=== PATIENT | female | born 1970 | race African-American/Black ===

== ENCOUNTER 2018-04-21 13:10 | Emergency (ER) | payer MEDICAID ==
--- NOTE | 2018-04-21 13:34 | EDM.PDOC ---
ED HPI GENERAL MEDICAL PROBLEM - General Stated Complaint: HPB Time Seen by Provider: 04/21/18 13:34 Source of Information: Reports: Patient History Limitations: Reports: No Limitations - History of Present Illness INITIAL COMMENTS - FREE TEXT/NARRATIVE: HISTORY AND PHYSICAL: History of present illness: Patient is a 48-year-old female who presents to the emergency room today with complaints of a migraine headache, nausea and generalized abdominal "upset". She states that when her blood pressure becomes elevated, she usually gets a migraine headache with this. She currently does take antihypertensive medications, but unsure of which she takes. Review of systems: As per history of present illness and below otherwise all systems reviewed and negative. Past medical history: As per history of present illness and as reviewed below otherwise noncontributory. Surgical history: As per history of present illness and as reviewed below otherwise noncontributory. Social history: No reported history of drug or alcohol abuse. Family history: As per history of present illness and as reviewed below otherwise noncontributory. Physical exam: General: Well-developed and well-nourished 48-year-old female. Alert and oriented. Nontoxic appearing and in no acute distress. HEENT: Atraumatic, normocephalic, pupils equal and reactive bilaterally, negative for conjunctival pallor or scleral icterus, mucous membranes moist, throat clear, neck supple, nontender, trachea midline. No drooling or trismus noted. No meningeal signs Lungs: Clear to auscultation, breath sounds equal bilaterally, chest nontender. Heart: S1S2, regular rate and rhythm without overt murmur Abdomen: Soft, nondistended, nontender. Negative for masses or hepatosplenomegaly. Negative for costovertebral tenderness. Pelvis: Stable nontender. Genitourinary: Deferred. Rectal: Deferred. Skin: Intact, warm, dry. No lesions or rashes noted. Extremities: Atraumatic, negative for cords or calf pain. Neurovascular unremarkable. Neuro: Awake, alert, oriented. Cranial nerves II through XII unremarkable. Cerebellum unremarkable. Motor and sensory unremarkable throughout. Exam nonfocal. Notes: CBC, CMP, and UA are unremarkable. Patient declined the Zofran at this time. Patient reports that her primary care provider is out of Jamie, whom prescribes her antihypertensives. Patient states her headache has improved somewhat but still has 7 out of 10 pain. She is requesting to have something to take when she goes home as she is driving herself. Give her one tablet of tramadol for home use. Medication education was given. She voices understanding. She will call her primary care provider to discuss her blood pressure medications and possibly have these adjusted. She denies any further questions at this time. Diagnostics: CBC, CMP, UA Therapeutics: Normal Saline, Zofran, Toradol, Tramadol Impression: Migraine Headache Plan: 1. Please follow-up with your primary care provider to possibly have your blood pressure medication adjusted (if it continues to be elevated). 2. Follow up in the ED as needed as discussed. Definitive disposition and diagnosis as appropriate pending reevaluation and review of above. Onset: Today Location: Reports: Head Headache Pain Score (Numeric/FACES): 10 - Related Data Allergies Allergy/AdvReac Type Severity Reaction Status Date / Time No Known Drug Allergies Allergy Other Verified 04/21/18 13:35 Home Meds: Home Meds Metoprolol Succinate [Toprol XL] 04/21/18 [History] amLODIPine [Norvasc] 04/21/18 [History] Past Medical History Cardiovascular History: Reports: Hypertension Social & Family History - Caffeine Use Caffeine Use: Reports: Soda, Tea ED ROS GENERAL - Review of Systems Review Of Systems: ROS reveals no pertinent complaints other than HPI. ED EXAM, GENERAL - Physical Exam Exam: See Below (See dictation) Course - Vital Signs Last Recorded V/S: Last Vital Signs Temp 97.1 F 04/21/18 15:29 Pulse 68 04/21/18 15:29 Resp 18 04/21/18 15:29 BP 147/56 H 04/21/18 15:29 Pulse Ox 96 04/21/18 15:29 - Orders/Labs/Meds Orders: Active Orders 24 hr Category Date Time Status UA W/MICROSCOPIC [URIN] Stat Lab 04/21/18 13:55 Ordered Labs: Laboratory Tests 04/21/18 04/21/18 04/21/18 Range/Units 13:55 14:13 14:13 WBC 7.14 (4.0-11.0) K/uL RBC 4.60 (4.30-5.90) M/uL Hgb 12.5 (12.0-16.0) g/dL Hct 37.0 (36.0-46.0) % MCV 80.4 (80.0-98.0) fL MCH 27.2 (27.0-32.0) pg MCHC 33.8 (31.0-37.0) g/dL RDW Std Deviation 40.7 (28.0-62.0) fl RDW Coeff of John 14 (11.0-15.0) % Plt Count 315 (150-400) K/uL MPV 9.20 (7.40-12.00) fL Neut % (Auto) 61.2 (48.0-80.0) % Lymph % (Auto) 32.6 (16.0-40.0) % [place] % (Auto) 4.3 (0.0-15.0) % Eos % (Auto) 1.8 (0.0-7.0) % Baso % (Auto) 0.1 (0.0-1.5) % Neut # (Auto) 4.4 (1.4-5.7) K/uL Lymph # (Auto) 2.3 (0.6-2.4) K/uL [place] # (Auto) 0.3 (0.0-0.8) K/uL Eos # (Auto) 0.1 (0.0-0.7) K/uL Baso # (Auto) 0.0 (0.0-0.1) K/uL Nucleated RBC % 0.0 /100WBC Nucleated RBCs # 0 K/uL Sodium 136 (136-145) mmol/L Potassium 4.0 (3.5-5.1) mmol/L Chloride 100 (98-107) mmol/L Carbon Dioxide 29.3 (21.0-32.0) mmol/L BUN 11 (7.0-18.0) mg/dL Creatinine 1.0 (0.6-1.0) mg/dL Est Cr Clr Drug Dosing 61.91 mL/min Estimated GFR (MDRD) > 60.0 ml/min Glucose 101 (74-106) mg/dL Calcium 9.2 (8.5-10.1) mg/dL Total Bilirubin 0.2 (0.2-1.0) mg/dL AST 18 (15-37) IU/L ALT 20 (14-63) IU/L Alkaline Phosphatase 73 (46-116) U/L Total Protein 8.0 (6.4-8.2) g/dL Albumin 3.4 (3.4-5.0) g/dL Globulin 4.6 H (2.0-3.5) g/dL Albumin/Globulin Ratio 0.7 L (1.3-2.8) Urine Color YELLOW Urine Appearance CLEAR Urine pH 7.0 (5.0-8.0) Ur Specific [place] 1.015 (1.001-1.035) Urine Protein NEGATIVE (NEGATIVE) mg/dL Urine Glucose (UA) NEGATIVE (NEGATIVE) mg/dL Urine Ketones NEGATIVE (NEGATIVE) mg/dL Urine Occult Blood NEGATIVE (NEGATIVE) Urine Nitrite NEGATIVE (NEGATIVE) Urine Bilirubin NEGATIVE (NEGATIVE) Urine Urobilinogen 0.2 (<2.0) EU/dL Ur Leukocyte Esterase NEGATIVE (NEGATIVE) Urine RBC 0-1 (0-2/HPF) Urine WBC 0-1 (0-5/HPF) Ur Epithelial Cells RARE (NONE-FEW) Urine Bacteria RARE (NEGATIVE) Meds: Medications Discontinued Medications Generic Name Dose Route Start Last Admin Trade Name Freq PRN Reason Stop Dose Admin Sodium Chloride 1,000 mls @ 999 mls/hr 04/21/18 13:35 04/21/18 14:45 Normal Saline IV 04/21/18 14:35 999 mls/hr STAT ONE Administration Ketorolac Tromethamine 30 mg 04/21/18 13:38 04/21/18 14:44 Toradol IVPUSH 04/21/18 13:39 30 mg ONETIME ONE Administration Ondansetron HCl 4 mg 04/21/18 13:38 04/21/18 14:44 Zofran IVPUSH 04/21/18 13:39 Not Given ONETIME ONE Departure - Departure Time of Disposition: 15:39 Disposition: Home, Self-Care 01 Clinical Impression: Migraine Qualifiers: Migraine type: without aura Status migrainosus presence: without status migrainosus Intractability: not intractable Qualified Code(s): G43.009 - Migraine without aura, not intractable, without status migrainosus - Discharge Information Instructions: Migraine Headache, [id number] Referrals: PCP,None [Primary Care Provider] - Additional Instructions: The following information is given to patients seen in the emergency department who are being discharged to home. This information is to outline your options for follow-up care. We provide all patients seen in our emergency department with a follow-up referral. The need for follow-up, as well as the timing and circumstances, are variable depending upon the specifics of your emergency department visit. If you don't have a primary care physician on staff, we will provide you with a referral. We always advise you to contact your personal physician following an emergency department visit to inform them of the circumstance of the visit and for follow-up with them and/or the need for any referrals to a consulting specialist. The emergency department will also refer you to a specialist when appropriate. This referral assures that you have the opportunity for follow-up care with a specialist. All of these measure are taken in an effort to provide you with optimal care, which includes your follow-up. Under all circumstances we always encourage you to contact your private physician who remains a resource for coordinating your care. When calling for follow-up care, please make the office aware that this follow-up is from your recent emergency room visit. If for any reason you are refused follow-up, please contact the [facility] Emergency Department at and asked to speak to the emergency department charge nurse. [facility] [address] [place] [address] 1. Please follow-up with your primary care provider to possibly have your blood pressure medication adjusted (if it continues to be elevated). 2. Follow up in the ED as needed as discussed. - My Orders Last 24 Hours: My Active Orders 04/21/18 13:55 UA W/MICROSCOPIC [URIN] Stat - Assessment/Plan Last 24 Hours: My Active Orders 04/21/18 13:55 UA W/MICROSCOPIC [URIN] Stat
[2018-04-21] MEDS ORDERED: Sodium Chloride 0.9% 1,000 ML IV ONE (13:35)
[2018-04-21] MEDS ORDERED: Ketorolac 30 MG/ML SDV IVPUSH ONE (13:38)
[2018-04-21] MEDS ORDERED: Ondansetron 4 MG/2 ML SDV IVPUSH ONE (13:38)
[2018-04-21 14:42] LABS: CHLORIDE,CL 100 mmol/L (98-107); SODIUM,NA 136 mmol/L (136-145)
[2018-04-21] MEDS ORDERED: traMADol 50 MG Tab PO ONE (15:39)
[2018-04-21 16:14] VITALS: BP 156/69
== END 2018-04-21 16:15 | disposition home or self-care (01) ==
LOC: MW.ED 13:10
DX: G43.009 Migraine without aura, not intractable, without status migrainosus (principal); I10 Essential (primary) hypertension
CPT/HCPCS: 36415; 80053; 81001; 85025; 96361; 96374; 99283; A9270; J1885; J7040

== ENCOUNTER 2021-12-11 10:30 | Emergency (ER) | payer BC ==
[2021-12-11] MEDS ORDERED: Sodium Chloride 0.9% 2.5 ML Syringe FLUSH PRN (11:10)
[2021-12-11] MEDS ORDERED: Sodium Chloride 0.9% 1,000 ML IV ONE (11:10)
[2021-12-11] MEDS ORDERED: Sodium Chloride 0.9% 10 ML Syringe FLUSH PRN (11:10)
[2021-12-11] MEDS ORDERED: traMADol 50 MG Tab PO ONE (11:12)
[2021-12-11 11:47] LABS: CARBON DIOXIDE,CO2 24.4 mmol/L (21.0-32.0); POTASSIUM,K 3.5 mmol/L (3.5-5.1)
[2021-12-11 15:24] VITALS: BP 119/62; PULSE 68
[2021-12-12 12:08] LABS: C.TRACHOMATIS BY TMA Negative (Negative); N.GONORRHOEAE BY TMA Negative (Negative)
== END 2021-12-11 15:26 | disposition home or self-care (01) ==
LOC: MW.ED 10:30
DX: R10.2 Pelvic and perineal pain (principal); I10 Essential (primary) hypertension; Z79.899 Other long term (current) drug therapy
CPT/HCPCS: 36415; 74176; 76857; 80053; 81001; 81025; 85025; 87480; 87491; 87510; 87591; 87660; 99284; A9270; J7030

== ENCOUNTER 2023-04-15 11:39 | Emergency (ER) | payer SELFPAY ==
[2023-04-15] MEDS ORDERED: hydrALAZINE 20 MG/ML SDV IVPUSH ONE (12:23)
[2023-04-15 12:56] LABS: BASOPHILS PERCENT AUTO 0.1 % (0.0-1.5); EOSINOPHILS ABSOLUTE AUTO 0.1 K/uL (0.0-0.7); EOSINOPHILS PERCENT AUTO 1.4 % (0.0-7.0); HEMATOCRIT 34.6 % (36.0-46.0); HEMOGLOBIN 11.5 g/dL (12.0-16.0); LYMPHOCYTES ABSOLUTE AUTO 2.9 K/uL (0.6-2.4); LYMPHOCYTES PERCENT AUTO 37.6 % (16.0-40.0); MEAN CORPUSCULAR HEMOGLOBIN 26.6 pg (27.0-32.0); MEAN CORPUSCULAR HGB CONC 33.2 g/dL (31.0-37.0); MEAN CORPUSCULAR VOLUME 79.9 fL (80.0-98.0); MONOCYTES ABSOLUTE AUTO 0.5 K/uL (0.0-0.8); MONOCYTES PERCENT AUTO 7.1 % (0.0-15.0); NEUTROPHILS ABSOLUTE AUTO 4.1 K/uL (1.4-5.7); NEUTROPHILS PERCENT AUTO 53.8 % (48.0-80.0); PLATELET COUNT,PLT 285 K/uL (150-400); RED BLOOD CELL COUNT 4.33 M/uL (4.30-5.90); WHITE BLOOD CELL COUNT,WBC 7.64 K/uL (4.0-11.0)
[2023-04-15 13:16] LABS: CALCIUM 8.5 mg/dL (8.5-10.1); CARBON DIOXIDE,CO2 26.6 mmol/L (21.0-32.0); CREATININE 0.8 mg/dL (0.6-1.0); EST CRCL DRUG DOSING (CG) 73.18 mL/min; POTASSIUM,K 3.9 mmol/L (3.5-5.1)
[2023-04-15] MEDS ORDERED: amLODIPine 5 MG Tab PO ONE (14:12)
[2023-04-15 14:19] VITALS: BP 192/107
[2023-04-15 14:21] VITALS: PULSE 71
== END 2023-04-15 14:55 | disposition home or self-care (01) ==
LOC: MW.ED 11:39
DX: I16.0 Hypertensive urgency (principal); I10 Essential (primary) hypertension; Z79.899 Other long term (current) drug therapy
CPT/HCPCS: 36415; 80048; 85025; 99284; A9270

== ENCOUNTER 2023-04-16 22:09 | Emergency (ER) | payer SELFPAY ==
[2023-04-16] MEDS ORDERED: oxyCODONE 5 MG Tab PO ONE (23:00)
[2023-04-16] MEDS ORDERED: Acetaminophen/Butalbital/Caffeine 325-50-40 MG Tab PO ONE (23:00)
[2023-04-17] MEDS ORDERED: cloNIDine 0.1 MG Tab PO ONE (00:02)
[2023-04-17 00:53] VITALS: BP 163/83; PULSE 57
== END 2023-04-17 00:52 | disposition home or self-care (01) ==
LOC: MW.ED 22:09
DX: R51.9 Headache, unspecified (principal); I10 Essential (primary) hypertension
CPT/HCPCS: 70450; 93005; 99284; A9270; 93010; 99283

== ENCOUNTER 2023-07-04 14:02 | Emergency (ER) | payer BC ==
[2023-07-04 14:38] LABS: BASOPHILS PERCENT AUTO 0.1 % (0.0-1.5); EOSINOPHILS ABSOLUTE AUTO 0.1 K/uL (0.0-0.7); EOSINOPHILS PERCENT AUTO 1.5 % (0.0-7.0); HEMATOCRIT 38.8 % (36.0-46.0); HEMOGLOBIN 12.7 g/dL (12.0-16.0); LYMPHOCYTES ABSOLUTE AUTO 3.2 K/uL (0.6-2.4); LYMPHOCYTES PERCENT AUTO 39.3 % (16.0-40.0); MEAN CORPUSCULAR HEMOGLOBIN 25.6 pg (27.0-32.0); MEAN CORPUSCULAR HGB CONC 32.7 g/dL (31.0-37.0); MEAN CORPUSCULAR VOLUME 78.1 fL (80.0-98.0); MONOCYTES ABSOLUTE AUTO 0.4 K/uL (0.0-0.8); NEUTROPHILS ABSOLUTE AUTO 4.4 K/uL (1.4-5.7); NEUTROPHILS PERCENT AUTO 54.1 % (48.0-80.0); NRBC ABSOLUTE 0 K/uL; PLATELET COUNT,PLT 226 K/uL (150-400); RED BLOOD CELL COUNT 4.97 M/uL (4.30-5.90); WHITE BLOOD CELL COUNT,WBC 8.04 K/uL (4.0-11.0)
[2023-07-04 15:03] LABS: A/G RATIO 0.8 (0.9-1.6); ALBUMIN 3.4 g/dL (3.4-5.0); BILIRUBIN TOTAL 0.2 mg/dL (0.2-1.0); CALCIUM 9.6 mg/dL (8.5-10.1); CARBON DIOXIDE,CO2 28.6 mmol/L (21.0-32.0); CREATININE 1.1 mg/dL (0.6-1.0); EST CRCL DRUG DOSING (CG) 53.22 mL/min; MAGNESIUM 1.7 mg/dL (1.8-2.4); POTASSIUM,K 3.8 mmol/L (3.5-5.1); PROTEIN TOTAL,TP 7.9 g/dL (6.4-8.2); TSH ULTRASENSITIVE 0.49 uIU/mL (0.36-3.74)
[2023-07-04] MEDS ORDERED: Magnesium Oxide 400 MG Tab PO ONE (15:07)
[2023-07-04 15:44] VITALS: BP 173/97; PULSE 97
== END 2023-07-04 15:44 | disposition home or self-care (01) ==
LOC: MW.ED 14:02
DX: I47.1 Supraventricular tachycardia (principal); I10 Essential (primary) hypertension; Z79.899 Other long term (current) drug therapy
CPT/HCPCS: 36415; 71045; 80053; 83690; 83735; 84443; 85025; 93005; 99285; A9270; 93010; 99283

== ENCOUNTER 2025-10-09 08:45 | Emergency (ER) | payer BC ==
[2025-10-09 11:03] LABS: APPEARANCE,URINE CLEAR; GLUCOSE,URINE NEGATIVE (NEGATIVE); OCCULT BLOOD,URINE NEGATIVE (NEGATIVE)
[2025-10-09 12:12] VITALS: BP 221/109; PULSE 71
== END 2025-10-09 12:11 | disposition home or self-care (01) ==
LOC: MW.ED 08:45
DX: I10 Essential (primary) hypertension (principal); M54.31 Sciatica, right side
CPT/HCPCS: 81003; 93005; 93010; 99283; 99284; A9270-GY